=== PATIENT | male | born 1965 | race Caucasian/White ===

== ENCOUNTER 2017-06-05 06:27 | Emergency (ER) | payer BC ==
[2017-06-05 06:57] LABS: URINE APPEARANCE CLEAR; URINE BILIRUBIN NEGATIVE (NEGATIVE); URINE BLOOD TRACE-I (NEGATIVE); URINE COLOR YELLOW; URINE KETONE NEGATIVE (NEGATIVE); URINE LEUKOCYTE ESTERASE NEGATIVE (NEGATIVE); URINE NITRITE NEGATIVE (NEGATIVE); URINE PROTEIN NEGATIVE (NEGATIVE); URINE UROBILINOGEN 0.2 E.U./dL (0.20 - 1.00)
[2017-06-05 06:58] LABS: URINE BACTERIA NONE SEEN; URINE EPITHELIAL CELLS 0 - 2 (FEW); URINE WBC 0 - 2 (0-2/hpf)
--- NOTE | 2017-06-05 07:06 | Emergency Department Record ---
History of Present Illness - General Mode of Arrival: Ambulatory - History of Present Illness Onset/Timin -: Hour(s) Location: Left flank Radiation: Back, L flank Severity: Moderate Severity scale (1-10): 7 Quality: Sharp Consistency: Constant, Getting worse Improves with: None Worsens with: Movement Other Reports: Nausea/vomiting <MONIKA REDD - Last Filed: 06/05/17 07:05> - General Source: Patient Mode of Arrival: Ambulatory Limitations: No limitations - History of Present Illness Initial comments: pt was dxd w renal lithiasis 4 days ago at [facility]. pain got better <Lolis Ruano - Last Filed: 06/05/17 11:27> - General Chief complaint: Flank Pain Stated complaint: L FLANK PAIN Time Seen by Provider: 06/05/17 07:05 - Related Data Home Medications Medication Instructions Recorded Confirmed Last Taken Insulin Aspart [Novolog] 20 unit SQ TID 06/05/17 06/05/17 06/04/17 Insulin Detemir [Levemir] 60 unit SQ QHS 06/05/17 06/05/17 06/04/17 Losartan Potassium [Cozaar] 50 mg PO DAILY 06/05/17 06/05/17 06/04/17 Allergies Allergy/AdvReac Type Severity Reaction Status Date / Time Penicillins Allergy RASH Verified 06/05/17 06:41 Travel Screening - Travel/Exposure Within Last 30 Days Have you traveled within the last 30 days?: No - Travel Symptoms Symptom Screening: Vomiting, Stomach Pain <MONIKA REDD - Last Filed: 06/05/17 07:05> Review of Systems Reviewed: No additional complaints except as noted below Constitutional: Reports: As per HPI. Denies: Chills, Fever, Malaise, Night sweats, Weakness, Weight change Eyes: Reports: As per HPI. Denies: Eye discharge, Eye pain, Photophobia, Vision change ENT: Reports: As per HPI. Denies: Congestion, Dental pain, Ear pain, Epistaxis , Hearing loss, Throat pain Respiratory: Reports: As per HPI. Denies: Cough, Dyspnea, Hemoptysis, Stridor, Wheezes Cardiovascular: Reports: As per HPI. Denies: Arrhythmia, Chest pain, Dyspnea on exertion, Edema, Murmurs, Orthopnea, Palpitations, Paroxysmal nocturnal dyspnea, Rheumatic Fever, Syncope Endocrine: Reports: As per HPI. Denies: Fatigue, Heat or cold intolerance, Polydipsia, Polyuria Gastrointestinal: Reports: As per HPI, Abdominal pain, Nausea, Vomiting. Denies : Constipation, Diarrhea, Hematemesis, Hematochezia, Melena Genitourinary: Reports: As per HPI. Denies: Dysuria, Frequency, Hematuria, Incontinence, Retention, Testicular pain, Testicular mass, Urgency Musculoskeletal: Reports: As per HPI. Denies: Arthralgia, Back pain, Gout, Joint swelling, Myalgia, Neck pain Skin: Reports: As per HPI. Denies: Bruising, Change in color, Change in hair/ nails, Lesions, Pruritus, Rash Neurological: Reports: As per HPI. Denies: Abnormal gait, Confusion, Headache, Numbness, Paresthesias, Seizure, Tingling, Tremors, Vertigo, Weakness Psychiatric: Reports: As per HPI. Denies: Anxiety, Auditory hallucinations, Depression, Homicidal thoughts, Suicidal thoughts, Visual hallucinations Hematological/Lymphatic: Reports: As per HPI. Denies: Anemia, Blood Clots, Easy bleeding, Easy bruising, Swollen glands <Lolis Ruano - Last Filed: 06/05/17 11:27> Past Medical History - SOCIAL HISTORY Smoking Status: Never smoker Alcohol Use: None Drug Use: None - RESPIRATORY Hx Respiratory Disorders: Yes Hx Sleep Apnea: Yes Hx of CPAP: Yes - CARDIOVASCULAR Hx Cardio Disorders: Yes Hx Hypertension: Yes - NEURO Hx Neuro Disorders: No - GI Hx GI Disorders: Yes Hx Hiatal Hernia: Yes - Hx Genitourinary Disorders: Yes Hx Kidney Stones: Yes - ENDOCRINE Hx Endocrine Disorders: Yes Hx Diabetes: Yes (IDDM2) - MUSCULOSKELETAL Hx Musculoskeletal Disorders: Yes Hx Arthritis: Yes - PSYCH Hx Psych Problems: No - HEMATOLOGY/ONCOLOGY Hx Hematology/Oncology Disorders: No <MONIKA REDD - Last Filed: 06/05/17 07:05> Family Medical History Any Significant Family History?: No <MONIKA REDD - Last Filed: 06/05/17 07:05> Physical Exam - General General Appearance: Alert, Oriented x3, Cooperative, Mild distress - Head Head exam: Normal inspection - Eye Eye exam: Normal appearance, PERRL, EOMI Pupils: Normal accommodation - ENT ENT exam: Normal exam, Mucous membranes moist, Normal external ear exam, Normal orophraynx Ear exam: Normal external inspection. negative: External canal tenderness Nasal Exam: Normal inspection. negative: Discharge, Sinus tenderness Mouth exam: Normal external inspection, Tongue normal Teeth exam: Normal inspection. negative: Dental caries Throat exam: Normal inspection. negative: Tonsillar erythema, Tonsillar exudate - Neck Neck exam: Normal inspection, Full ROM. negative: Tenderness - Respiratory Respiratory exam: Normal lung sounds bilaterally. negative: Respiratory distress - Cardiovascular Cardiovascular Exam: Regular rate, Normal rhythm, Normal heart sounds - GI/Abdominal GI/Abdominal exam: Soft, Normal bowel sounds. negative: Tenderness - Rectal Rectal exam: Deferred - exam: Deferred - Extremities Extremities exam: Normal inspection, Full ROM, Normal capillary refill. negative: Tenderness - Back Back exam: Reports: CVA tenderness (L), Full ROM. Denies: Muscle spasm, Rash noted, Tenderness - Neurological Neurological exam: Alert, CN II-XII intact, Normal gait, Oriented X3 - Psychiatric Psychiatric exam: Normal affect, Normal mood - Skin Skin exam: Dry, Intact, Normal color, Warm <Lolis Ruano - Last Filed: 06/05/17 11:27> Course Vital Signs 06/05/17 06:31 Temperature 98.4 F Pulse Rate 83 Respiratory 18 Rate Blood Pressure 181/110 Pulse Ox 98 <MONIKA REDD - Last Filed: 06/05/17 07:05> Vital Signs 06/05/17 06/05/17 06:31 07:32 Temperature 98.4 F Pulse Rate 83 Pulse Rate [ 93 H Pulse Ox Probe] Respiratory 18 20 Rate Blood Pressure 181/110 Blood Pressure 160/104 [Right Arm] Pulse Ox 98 97 - Reevaluation(s) Reevaluation #1: 06/05/17 11:00 this chart is done by lolis ruano, jeaneth redd <Lolis Ruano - Last Filed: 06/05/17 11:27> Medical Decision Making - Lab Data Lab Results 06/05/17 Range/Units 06:57 Urine Color Yellow Urine Appearance Clear Urine pH 7.0 (5.0-8.0) Ur Specific Tracy 1.020 (1.002-1.030) Urine Protein Negative (NEGATIVE) Urine Glucose (UA) 250 mg/dl H (NEGATIVE) Urine Ketones Negative (NEGATIVE) Urine Blood Trace-i (NEGATIVE) Urine Nitrite Negative (NEGATIVE) Urine Bilirubin Negative (NEGATIVE) Urine Urobilinogen 0.2 (0.20 - 1.00) E.U./dL Ur Leukocyte Esterase Negative (NEGATIVE) Urine RBC 3 - 6 (NONE SEEN) Urine WBC 0 - 2 (0-2/hpf) Ur Epithelial Cells 0 - 2 (FEW) Urine Bacteria None seen <MONIKA REDD - Last Filed: 06/05/17 07:05> - Lab Data Result diagrams: 06/05/17 07:25 06/05/17 07:25 Lab Results 06/05/17 06/05/17 06/05/17 Range/Units 06:57 07:25 07:25 WBC 7.5 (4.2-12.2) K/uL RBC 4.09 L (4.40-5.70) M/uL Hgb 12.3 L (14.0-18.0) gm/dl Hct 34.9 L (42.0-52.0) % MCV 85.3 (81-97) fl MCH 30.0 (27-33) pg MCHC 35.2 (32-36) g/dl RDW 11.6 (11.5-14.5) % Plt Count 146 (130-400) K/uL MPV 11.4 H (7.4-10.4) fl Neutrophils % 84.0 H (47-80) % Eosinophils % Not Reportable Basophils % Not Reportable Lymphocytes 11.0 L (16-45) % Monocytes 4.0 (0-9) % Platelet Estimate Normal (NORMAL) RBC Morphology Normal Eosinophil Count 1.0 (0-6) % Sodium 135 L (136-145) mmol/L Potassium 4.2 (3.4-4.5) mmol/L Chloride 96 L (98-107) mmol/L Carbon Dioxide 28.0 (22-29) mmol/L Anion Gap 11.0 (7-16) BUN 12 (6-20) mg/dL Creatinine 0.8 (0.7-1.2) mg/dL Estimated GFR > 60 mL/min Random Glucose 208 H (74-109) mg/dL Calcium 9.3 (8.6-10.0) mg/dL Urine Color Yellow Urine Appearance Clear Urine pH 7.0 (5.0-8.0) Ur Specific Tracy 1.020 (1.002-1.030) Urine Protein Negative (NEGATIVE) Urine Glucose (UA) 250 mg/dl H (NEGATIVE) Urine Ketones Negative (NEGATIVE) Urine Blood Trace-i (NEGATIVE) Urine Nitrite Negative (NEGATIVE) Urine Bilirubin Negative (NEGATIVE) Urine Urobilinogen 0.2 (0.20 - 1.00) E.U./dL Ur Leukocyte Esterase Negative (NEGATIVE) Urine RBC 3 - 6 (NONE SEEN) Urine WBC 0 - 2 (0-2/hpf) Ur Epithelial Cells 0 - 2 (FEW) Urine Bacteria None seen <Lolis Ruano - Last Filed: 06/05/17 11:27> Disposition <MONIKA REDD - Last Filed: 06/05/17 07:05> Disposition: Transfer Transfer To: [facility] Reason For Transfer: needs urologist Accepting Physician: dr cruz Time Discussed w/Accepting Physician: 11: <Lolis Ruano - Last Filed: 06/05/17 11:27> Clinical Impression: Renal lithiasis Hydronephrosis Qualifiers: Hydronephrosis type: with ureteral calculous obstruction Qualified Code(s): N13.2 - Hydronephrosis with renal and ureteral calculous obstruction Disposition: Acute Care Hospital Transfer Forms: Patient Portal Access Quality - Blood Pressure Screening Does Patient Have Any of the Following: No Blood Pressure Classification: Hypertensive Reading Systolic Measurement: 181 Diastolic Measurement: 110 <MONIKA REDD - Last Filed: 06/05/17 07:05> - Quality Measures Quality Measures: N/A - Blood Pressure Screening Does Patient Have Any of the Following: No Blood Pressure Classification: Hypertensive Reading Systolic Measurement: 181 Diastolic Measurement: 110 Screening for High Blood Pressure: < First Hypertensive BP, F/U Documented > [ G8950] First Hypertensive Follow-up Interventions: Follow-up with rescreen GT 1 day and LT 4 weeks. <Lolis Ruano - Last Filed: 06/05/17 11:27>
[2017-06-05] MEDS ORDERED: 0.9 % SODIUM CHLORIDE 1,000 ML BAG IV ONE (07:17)
[2017-06-05 07:45] LABS: HEMATOCRIT 34.9 % (42.0-52.0); HEMOGLOBIN 12.3 gm/dl (14.0-18.0); MEAN CELL VOLUME 85.3 fl (81-97); MEAN CORPUSCULAR HGB CONC 35.2 g/dl (32-36); MEAN PLATELET VOLUME 11.4 fl (7.4-10.4); PLATELET COUNT 146 K/uL (130-400); RED BLOOD COUNT 4.09 M/uL (4.40-5.70); RED CELL DISTRIBUTION WIDTH 11.6 % (11.5-14.5); WHITE BLOOD COUNT W/O DIFF 7.5 K/uL (4.2-12.2)
[2017-06-05 07:55] LABS: BLOOD UREA NITROGEN 12 mg/dL (6-20); CREATININE 0.8 mg/dL (0.7-1.2); EST GLOMERULAR FILTRATION RATE > 60 mL/min
[2017-06-05 07:57] LABS: PLATELET ESTIMATE NORMAL (NORMAL)
[2017-06-05 07:58] LABS: GLUCOSE,RANDOM 208 mg/dL (74-109)
--- NOTE | 2017-06-06 07:42 | CT SCAN REPORT ---
EXAM: CT OF THE ABDOMEN AND PELVIS WITHOUT CONTRAST HISTORY: LEFT FLANK PAIN WITH MICROHEMATURIA, HISTORY OF RECENT DISTAL URETERAL CALCULUS ON THE LEFT. TECHNIQUE: Axial CT scan of the abdomen and pelvis was performed without oral or IV contrast. Comparison: No prior CT at this institution with which to compare, however, comparison is made with the prior CT dated 06/01/17 from [facility] which is viewed on a separate [facility] PACS workstation in the department. FINDINGS: No intrarenal calculi identified on either side, however, there is moderate hydronephrosis on the left and there is again seen to be a calcification at the level of the left UPJ measuring approximately 6 x 5 mm in size as before consistent with a left UPJ calculus causing persistent obstruction of the left kidney. No calcified gallstones seen within the gallbladder. Evaluation of the bowel and viscera is quite limited without oral or IV contrast. Given this limitation, no definite hepatic, splenic, adrenal, pancreatic, or renal mass identified. There is a moderate sized hiatal hernia present. Mild diverticulosis left side of the colon, but no diverticulitis evident. No appendicitis evident. No free intraperitoneal air or free intraperitoneal fluid evident. Extremely tiny nodule in the left lung base present previously as well is likely a tiny granuloma. Prominent spurring in the lower thoracic spine. IMPRESSION: 1. PERSISTENT APPROXIMATELY 5 X 6 MM CALCULUS AT THE LEFT UPJ CAUSING PERSISTENT OBSTRUCTION OF THE LEFT KIDNEY. NO OTHER URINARY TRACT CALCULI IDENTIFIED. 2. MODERATE SIZED HIATAL HERNIA. 3. MINOR DIVERTICULOSIS LEFT SIDE OF THE COLON WITH NO DIVERTICULITIS EVIDENT. JOB NUMBER: [id number] [facility]
== END 2017-06-05 12:13 | disposition short-term general hospital (02) ==
LOC: ER 06:27
DX: N13.2 Hydronephrosis with renal and ureteral calculous obstruction (principal); R11.2 Nausea with vomiting, unspecified; I10 Essential (primary) hypertension; E11.9 Type 2 diabetes mellitus without complications; Z79.4 Long term (current) use of insulin
CPT/HCPCS: 74176; 80048; 81001; 85027; 99284; J7030

== ENCOUNTER 2017-12-15 19:22 | Emergency (ER) | payer BC ==
[2017-12-15] MEDS ORDERED: CLINDAMYCIN 600MG/50ML PREMIX 600 MG/50 ML BAG IVPB ONE (19:44)
--- NOTE | 2017-12-15 19:49 | Emergency Department Record ---
History of Present Illness - General Chief Complaint: Wound, check Stated Complaint: L FOOT INFECTION Time Seen by Provider: 12/15/17 19:44 Source: Patient Mode of arrival: Ambulatory - History of Present Illness Initial Comments: 52 yo male presents to ED for evaluation of pain and possible infection to the left great toe. Patient reports that his symptoms may have started 1 weeks ago , denies fevers, chills, or recent illness. Patient noticed a redness and pain to the foot earlier today associated with a blister to the left great toe. Patient reports a history of IDDM x 1 year, reports mild numbness to the feet bilaterally. MD Complaint: Other (wound left great toe) Onset/Timin -: Week(s) Initial Visit For: Other Symptoms Since Prior Visit: Other Associated Symptoms: None Treatments Prior to Arrival: Other - Related Data Previous Rx's Medication Instructions Recorded Sulfamethoxazole/Trimethoprim 1 each PO BID #20 tablet 12/15/17 [Bactrim Ds Tablet] Allergies Allergy/AdvReac Type Severity Reaction Status Date / Time Penicillins Allergy RASH Verified 12/15/17 20:37 Travel Screening - Travel/Exposure Within Last 30 Days Have you traveled within the last 30 days?: No - Travel/Exposure Within Last Year Have you traveled outside the [place] in the last year?: No - Additonal Travel Details Have you been exposed to anyone with a communicable illness?: No - Travel Symptoms Symptom Screening: None Review of Systems Constitutional: Denies: Chills, Fever, Malaise, Night sweats Eyes: Denies: Eye discharge, Eye pain ENT: Denies: Congestion, Ear pain, Epistaxis Respiratory: Denies: Cough, Dyspnea Cardiovascular: Denies: Chest pain, Dyspnea on exertion Endocrine: Denies: Fatigue, Heat or cold intolerance Gastrointestinal: Reports: Diarrhea. Denies: Abdominal pain, Nausea, Vomiting Genitourinary: Denies: Incontinence, Retention Musculoskeletal: Reports: Myalgia. Denies: Arthralgia, Back pain, Gout, Joint swelling Skin: Reports: Other (Blister, redness to the left grea toe.). Denies: Bruising , Change in color Neurological: Denies: Abnormal gait, Confusion, Headache, Seizure Psychiatric: Denies: Anxiety Hematological/Lymphatic: Denies: Anemia, Blood Clots Past Medical History - SOCIAL HISTORY Smoking Status: Never smoker Alcohol Use: None Drug Use: None - RESPIRATORY Hx Respiratory Disorders: Yes Hx Sleep Apnea: Yes Hx of CPAP: Yes - CARDIOVASCULAR Hx Cardio Disorders: Yes Hx Hypertension: Yes - NEURO Hx Neuro Disorders: No - GI Hx GI Disorders: Yes Hx Hiatal Hernia: Yes - Hx Genitourinary Disorders: Yes Hx Kidney Stones: Yes - ENDOCRINE Hx Endocrine Disorders: Yes Hx Diabetes: Yes (IDDM2) - MUSCULOSKELETAL Hx Musculoskeletal Disorders: Yes Hx Arthritis: Yes - PSYCH Hx Psych Problems: No - HEMATOLOGY/ONCOLOGY Hx Hematology/Oncology Disorders: No Family Medical History Any Significant Family History?: No Physical Exam - General General Appearance: Alert, Oriented x3, Cooperative, Mild distress Limitations: No limitations - Head Head exam: Atraumatic, Normocephalic, Normal inspection Head exam detail: negative: Abrasion, Contusion, Blanton's sign, General tenderness, Hematoma, Laceration - Eye Eye exam: Normal appearance. negative: Conjunctival injection, Periorbital swelling, Periorbital tenderness, Scleral icterus - ENT Ear exam: negative: Auricular hematoma, Auricular trauma Nasal Exam: negative: Active bleeding, Discharge, Dried blood, Foreign body Mouth exam: negative: Drooling, Laceration, Muffled voice, Tongue elevation - Neck Neck exam: Normal inspection. negative: Meningismus, Tenderness - Respiratory Respiratory exam: Normal lung sounds bilaterally. negative: Rales, Respiratory distress, Rhonchi, Stridor - Cardiovascular Cardiovascular Exam: Regular rate, Normal rhythm, Normal heart sounds Peripheral Pulses: 2+: Dorsalis Pedis (R), Dorsalis Pedis (L) - GI/Abdominal GI/Abdominal exam: Soft. negative: Rebound, Rigid, Tenderness - Rectal Rectal exam: Deferred - exam: Deferred - Extremities Extremities exam: Tenderness, Other (Open blistering to the left great toe with mild erythema extending to the base of the left grea toe. No lymphangitis is present. No exposed muscle or bone is present on examination.). negative: Calf tenderness, Pedal edema - Back Back exam: Denies: CVA tenderness (R), CVA tenderness (L) - Neurological Neurological exam: Alert, Normal gait, Oriented X3 - Psychiatric Psychiatric exam: Normal affect, Normal mood - Skin Skin exam: Erythema. negative: Abrasion Distribution of rash: LLE Description of rash: Blisters, Erythematous Course Vital Signs 12/15/17 19:39 Temperature 98.4 F Pulse Rate [ 110 H Pulse Ox Probe] Respiratory 24 Rate Blood Pressure 122/85 [Left Arm] Pulse Ox 100 - Reevaluation(s) Reevaluation #1: 12/15/17 20:58 Laboratory studies were reviewed, CRP 1.6, ESR pending. Clindamycin has completed infusing, and the patient is resting comfortably at this time. Patient's recent laboratory studies were reviewed (stool provided yesterday for diarrhea following camping trip), does report recent loose stools with moderate WBCs in the stool resulted. C. Diff negative. Will initiate treatment with Bactrim for treatment of the patient's toe infection as well as infectious diarrhea with instructions for close follow-up with his PCP Sunday/Sunday as directed. Medical Decision Making - Lab Data Result diagrams: 12/15/17 19:58 12/15/17 19:58 Disposition Disposition: Discharge Clinical Impression: Cellulitis of toe of left foot, Infectious diarrhea Disposition: Home, Self-Care Condition: (2) Stable Instructions: Cellulitis (ED) Additional Instructions: Return to ED if your symptoms worsen or if you have any concerns. Bactrim as directed. Follow-up with your family doctor in 1-3 days as directed. Prescriptions: Sulfamethoxazole/Trimethoprim [Bactrim Ds Tablet] 1 each PO BID #20 tablet Forms: Patient Portal Access Time of Disposition: 21:08 Quality - Quality Measures Quality Measures: N/A - Blood Pressure Screening Does Patient Have Any of the Following: No Blood Pressure Classification: Pre-Hypertensive BP Reading Systolic Measurement: 131 Diastolic Measurement: 86 Screening for High Blood Pressure: < Pre-Hypertensive BP, F/U Documented > [ G8950] Pre-Hypertensive Follow-up Interventions: Referral to alternative/primary care provider.
[2017-12-15 20:15] LABS: BASO % 0.3 % (0-6); HEMATOCRIT 40.3 % (42.0-52.0); HEMOGLOBIN 13.8 gm/dl (14.0-18.0); LYMPH % 24.3 % (16-45); MEAN CELL VOLUME 85.7 fl (81-97); MEAN CORPUSCULAR HGB CONC 34.2 g/dl (32-36); MEAN PLATELET VOLUME 11.1 fl (7.4-10.4); MONO % 11.4 % (0-9); PLATELET COUNT 197 K/uL (130-400); RED CELL DISTRIBUTION WIDTH 12.4 % (11.5-14.5); WHITE BLOOD COUNT W/O DIFF 8.6 K/uL (4.2-12.2)
[2017-12-15 20:38] LABS: MEAN CORPUSCULAR HEMOGLOBIN 29.3 pg (27-33)
[2017-12-15 20:44] LABS: BLOOD UREA NITROGEN 8 mg/dL (6-20); CREATININE 0.7 mg/dL (0.7-1.2); EST GLOMERULAR FILTRATION RATE > 60 mL/min
[2017-12-15 20:45] LABS: TOTAL PROTEIN 7.5 g/dL (6.6-8.7)
[2017-12-15 20:47] LABS: GLUCOSE,RANDOM 100 mg/dL (74-109)
[2017-12-15 20:50] LABS: ALB/GLOB RATIO 1.5 (1.1-1.8); ALBUMIN 4.5 g/dL (4.0-5.0); ALKALINE PHOSPHATASE 61 U/L (40-129); ALT/SGPT 25 U/L (<41); AST/SGOT 15 U/L (10.0-50.0); C-REACTIVE PROTEIN 1.63 mg/dL (<0.5)
[2017-12-15 21:40] LABS: ERYTHROCYTE SEDIMENTATION RATE 23 mm/hr (0-20)
== END 2017-12-15 21:21 | disposition home or self-care (01) ==
LOC: ER 19:22
DX: L03.032 Cellulitis of left toe (principal); A09 Infectious gastroenteritis and colitis, unspecified; E11.9 Type 2 diabetes mellitus without complications; Z79.4 Long term (current) use of insulin; I10 Essential (primary) hypertension
CPT/HCPCS: 80053; 85025; 85651; 86140; 96374; 99284